=== PATIENT | male | born 1960 | race Caucasian/White ===

== ENCOUNTER → 2022-11-15 11:07 | Outpatient (BNVA) | payer MEDICAID, SELFPAY | PROVIDERS: PCP Family Medicine; Visit Provider Emergency Medicine | DX: R05.9 Cough, unspecified (principal); J01.00 Acute maxillary sinusitis, unspecified; Z20.822 Contact with and (suspected) exposure to COVID-19 | CPT/HCPCS: 87426 ==

== ENCOUNTER 2023-03-11 14:30 | Outpatient (CLI) | payer MEDICAID, SELFPAY ==
--- NOTE | 2023-03-11 14:37 | CT_ITS ---
WS: [id number] LDCT LUNG CANCER SCREENING TECHNIQUE: Noncontrast CT of the chest with coronal and sagittal reformatted images. CLINICAL INFORMATION: HX OF TOBACCO USE COMPARISON: None. DLP: 63.00 mGy.cm DIvol: Mean CTDIvol: 1.10 (mGy) All CT scans at [facility] use at least one of these dose optimization techniques: automat ed exposure control; mA and/or kV adjustment per patient size (includes targeted exams where dose is matched to clinical indication); or iterative reconstruction. FINDINGS: Moderate chronic emphysematous changes. LEFT lower lobe nodule measuring 9 mm. Few addition al tiny surrounding satellite nodules. Subsegmental atelectasis LEFT lower lobe. Subsegmental atelect asis in the lingula. Normal caliber thoracic aorta. Aortic calcification. No mediastinal or hilar lymphadenopathy. No axil roger lymphadenopathy. Coronary calcification. Adrenal glands are normal. Normal GE junction. Mild tho racic curve. A few Schmorl's nodes in the midthoracic spine. IMPRESSION: LEFT lower lobe nodule measuring 9 mm with a few tiny surrounding satellite nodules. Meliton mmend further evaluation with PET/CT. No prior comparisons. CT/CT lung screening [id number] LUNG-RADS: 4B-Suspicious FOLLOW UP: PET/CT recommended
== END 2023-03-11 14:31 | disposition home or self-care (01) ==
LOC: RAD 14:31
PROVIDERS: PCP Family Medicine; Visit Provider Family Medicine
DX: Z12.2 Encounter for screening for malignant neoplasm of respiratory organs (principal); Z87.891 Personal history of nicotine dependence; R91.8 Other nonspecific abnormal finding of lung field
CPT/HCPCS: 71271

== ENCOUNTER 2023-04-04 17:40 | Emergency (ER) | payer OTHER, MEDICAID, SELFPAY ==
[2023-04-04 18:41] VITALS: BP 152/91; PULSE 90; RESP 15; TEMP 36.2; O2SAT 95; BMI 21.2
--- NOTE | 2023-04-04 20:11 | XRR_ITS ---
PROCEDURE INFORMATION: Exam: XR Right Hand Exam date and time: 04/04/2023 8:35 PM Age: 62 years old Clinical indication: Injury or trauma; Other: Dog bite; Finger; Thumb; Right TECHNIQUE: Imaging protocol: Radiologic exam of the right hand. Views: 3 or more views. COMPARISON: No relevant prior studies available. FINDINGS: Bones/joints: There are acute comminuted nondisplaced fractures involving the proximal aspect of the 1st proximal phalanx. There is abnormal alignment between the 1st metacarpal bone in the 1st proximal phalanx suggesting dislocation. Focal irregularity involving the distal end of the 1st metacarpal bone may also indicate avulsion fracture. Soft tissues: There is soft tissue injury involving the thumb. I see no foreign body. XR/XR hand RT min 3V* [id number] IMPRESSION: Fractures involving the 1st metacarpal and proximal phalanx with associated soft tissue injury
--- NOTE | 2023-04-04 20:23 | ED_ITS ---
HPI - Extremity Problem 2 General: Chief complaint: Extremity Problem,Nontraumatic Stated complaint: Infected left hand wound Time Seen by Provider: 04/04/23 20:11 Source: patient Mode of arrival: ambulatory Limitations: no limitations History of Present Illness: 62-year-old male states he was bitten by dog on his right hand 3 weeks ago he states he had seen his PCP is placed on Augmentin states he had some improvement but over the last 4 to 5 days has had swelling redness and drainage from the wound he states that he has some pain with range of motion. Denies any fever denies any worsening improving factors. Associated symptoms: Deny chest pain, fever(s) or rash Review of Systems 2 Const: Denies: fever(s), chills, body aches or change in appetite ENMT: Denies: throat pain or dental pain Card: Denies: chest pain Resp: Denies: dyspnea GI: Denies: abdominal pain, nausea, vomiting or diarrhea Musc: Reports: extremity pain; Denies: neck pain or back pain Skin/Breast: Denies: rash Neuro: Denies: headache(s) Physical Exam 2 Const: COMMON NORMALS: patient oriented x3 HENMT: COMMON NORMALS: normocephalic and atraumatic HEAD & SCALP: n ormocephalic and atraumatic Neck/C-Spine: COMMON NORMALS: full ROM Chest: COMMONS NORMALS: normal inspection of the chest Resp: COMMON NORMALS: normal respiratory effort GI: COMMON NORMALS: Normal to inspection, nondistended, normoactive bowel sounds present, Soft to palpation, non-tender and no masses PALPATION: Yes Soft to palpation Extremity: NARRATIVE EXTREMITY EXAM: Skin erythema along with swelling to base of right thumb with some purulent drainage from wound Neuro: COMMON NORMALS: patient oriented x3, moves all extremities and no focal motor deficits Psych: COMMON NORMALS: mental status grossly normal, Normal thought process present and cooperative THOUGHT PROCESS: Normal thought process present Skin: COMMON NORMALS: no rashes or lesions noted and no wounds GENERAL SKIN EXAM: no rashes or lesions noted Course 2 Vital Signs: Vital signs: Vital Signs Temperature 97.2 F L 04/04/23 18:41 Pulse Rate 81 04/04/23 22:20 Respiratory Rate 15 04/04/23 18:41 Blood Pressure 175/92 04/04/23 22:20 Pulse Oximetry 97 04/04/23 22:20 Oxygen Delivery Me thod Room Air 04/04/23 22:20 MDM - Extremity (Nontraumatic) Medical Decision Making Patient presents with right thumb fracture along with cellulitis I strongly recommended patient to be transferred to [facility] for his fracture along with cellulitis and swelling to his thumb. Patient states that he is not going there by ambulance he states that he is not able to go there tonight and refused. Informed him that he appears to have a serious infection to his thumb he could even lose his thumb he understands this. Did placement thumb spica splint given vancomycin here we will write him for Augmentin did get him name and number for hand specialist at [place] to follow-up with if he changes his mind he is to return. Medical Records I reviewed the patient's medical records. Lab Data I reviewed the patient's lab results. 04/04/23 21:30 04/04/23 21:30 Radiology Impressions Hand X-Ray 04/04/23 20:11 IMPRESSION: Fractures involving the 1st metacarpal and proximal phalanx with associated soft tissue injury Laboratory Results WBC 11.20 10^3/uL (3.29-11.43) 04/04/23 21:30 RBC 4.98 10^6/uL (3.85-5.65) 04/04/23 21:30 Hgb 15.20 g/dL (11.27-16.99) 04/04/23 21:30 Hct 46.3 % (37-53) 04/04/23 21:30 MCV 93.0 fl (82-101) 04/04/23 21:30 MCH 30.5 pg (27-33) 04/04/23 21:30 MCHC 32.8 g/dL (30-55) 04/04/23 21:30 RDW 11.9 % (12.1-15.1) L 04/04/23 21:30 Plt Count 253 10^3/cmm (157-399) 04/04/23 21:30 MPV 9.6 fL (7.4-10.4) 04/04/23 21:30 Neut % (Auto) 65.0 % 04/04/23 21:30 Lymph % (Auto) 21.9 % 04/04/23 21:30 Davison % (Auto) 10.7 % 04/04/23 21:30 Eos % (Auto) 1.4 % 04/04/23 21:30 Baso % (Auto) 0.6 % 04/04/23 21:30 Neut # (Auto) 7.28 10^3/uL (1.8-7.7) 04/04/23 21:30 Lymph # (Auto) 2.5 10^3/uL (0.8-4.8) 04/04/23 21:30 Davison # (Auto) 1.2 10^3/uL (0.2-0.9) H 04/04/23 21:30 Eos # (Auto) 0.2 10^3/uL (0.0-0.8) 04/04/23 21:30 Baso # (Auto) 0.1 10^3/uL (0.0-0.1) 04/04/23 21:30 Nucleated RBC % (auto) 0 % 04/04/23 21:30 Nucleated RBCs # 0.0 /100WBC 04/04/23 21:30 ESR 19 mm/hr (0-10) H 04/04/23 21:30 Sodium 137 mmol/L (136-145) 04/04/23 21:30 Potassium 4.4 mmol/L (3.5-5.1) 04/04/23 21: Chloride 100 mmol/L (98-107) 04/04/23 21: Carbon Dioxide 25 mmol/L (22-29) 04/04/23 21:30 Anion Gap 16.4 (5-19) 04/04/23 21:30 BUN 11 mg/dL (8-23) 04/04/23 21:30 Creatinine 0.7 mg/dL (0.7-1.2) 04/04/23 21:30 GFR Calculation 113.9 mL/min (90-130) 04/04/23 21:30 Glucose 110 mg/dL (65-115) 04/04/23 21: Calculated Osmolality 284 mOsm/kg (285-295) L 04/04/23 21:30 Calcium 9.1 mg/dL (8.5-10.5) 04/04/23 21:30 C-Reactive Protein 9.6 mg/L (0.0-4.9) H 02/05/24 21:30 All radiology interpretation(s) finalized by discharge Discharge Plan Discharge Patient Disposition: Left Against Medical Advice Clinical Impression: Closed fracture of right thumb Cellulitis Qualifiers: Site of cellulitis: extremity Site of cellulitis of extremity: upper extremity Laterality: right Qualified Code(s): L03.113 - Cellulitis of right upper limb Condition: Stable Prescriptions: New Augmentin 500-125 mg tablet 1 tab PO BID Qty: 14 0RF No Action mupirocin 2 % ointment 1 applic topical BID Qty: 15 0RF fluticasone propionate [Flonase Allergy Relief] 50 mcg/actuation spray,suspension 2 spray intranasal DAILY Qty: 16 0RF Rx Instructions: administer into each nostril cetirizine [Zyrtec] 10 mg tablet 10 mg PO DAILY Qty: 30 0RF Discharge Orders: Discharge ED (Routine); Ordered 04/04/23 Ordered By: Anastasia Dickens Referrals: sybil amos [Other] - 4-7 days Ambrocio Sommers MD [Primary Care Provider] - Discharge Diet: Advance as tolerated Discharge Activity: Resume usual activity Patient Instructions: Cellulitis (ED), Thumb Fracture (ED) Coding Level of Care Code ED Fitness Floor Attendant for Tomas Danielson
[2023-04-04] MEDS: vancomycin 1,000 MG in sodium chloride 0.9% 250 ML 250 MG IV (21:32)
[2023-04-04 21:39] LABS: Basophils # 0.1 10^3/uL (0.0-0.1); Basophils % 0.6 %; Eosinophils # 0.2 10^3/uL (0.0-0.8); Eosinophils % 1.4 %; Hematocrit 46.3 % (37-53); Lymphocytes # 2.5 10^3/uL (0.8-4.8); Lymphocytes % 21.9 %; Mean Corpuscular HGB Conc 32.8 g/dL (30-55); Mean Corpuscular Hemoglobin 30.5 pg (27-33); Mean Platelet Volume 9.6 fL (7.4-10.4); Monocytes # 1.2 10^3/uL (0.2-0.9); Monocytes % 10.7 %; Neutrophils # 7.28 10^3/uL (1.8-7.7); Nucleated Red Blood Cells % 0 %; Platelet Count 253 10^3/cmm (157-399); Red Blood Count 4.98 10^6/uL (3.85-5.65); Red Cell Distribution Width 11.9 % (12.1-15.1)
[2023-04-04 21:52] LABS: Erythrocyte Sedimentation Rate 19 mm/hr (0-10)
[2023-04-04 21:58] LABS: Anion Gap 16.4 (5-19); Blood Urea Nitrogen 11 mg/dL (8-23); C Reactive Protein 9.6 mg/L (0.0-4.9); Calcium 9.1 mg/dL (8.5-10.5); Carbon Dioxide 25 mmol/L (22-29); Chloride 100 mmol/L (98-107); Glomerular Filtration Rate 113.9 mL/min (90-130); Glucose 110 mg/dL (65-115); Osmolality Calculated 284 mOsm/kg (285-295); Potassium 4.4 mmol/L (3.5-5.1); Sodium 137 mmol/L (136-145)
[2023-04-04 22:20] VITALS: BP 175/92; PULSE 81; O2SAT 97
[2023-04-04 23:03] VITALS: BP 162/89; PULSE 80; O2SAT 92
== END 2023-04-04 23:06 | disposition left against medical advice (07) ==
PROVIDERS: Emergency Provider Emergency Medicine; PCP Family Medicine
DX: L03.113 Cellulitis of right upper limb (principal); S62.511A Displaced fracture of proximal phalanx of right thumb, initial encounter for closed fracture; Z53.29 Procedure and treatment not carried out because of patient's decision for other reasons; W54.0XXA Bitten by dog, initial encounter
CPT/HCPCS: 29125; 73130; 80048; 85025; 85651; 86140; 87040; 87150; 87186; 87205; 96374; 99284; J3370; J7050

== ENCOUNTER 2023-07-12 12:33 | Outpatient (CLI) | payer OTHER, MEDICAID, SELFPAY ==
--- NOTE | 2023-07-12 12:40 | PETR_ITS ---
PROCEDURE INFORMATION: Exam: PET/CT Skull Base to Mid-thigh Exam date and time: 07/12/2023 1:41 PM Age: 63 years old Clinical indication: Abnormal findings; Left lower lobe nodule measuring 9 mm with a few tiny surrounding satellite nodules. ; Additional info: Solitary pulmonary nodule LABS AND CLINICAL REPORTS: Glucose: 85 mg/dl Treatment strategy for malignancy (PET staging): Initial Staging (PI) TECHNIQUE: Imaging protocol: Following at least four-hour fasting and following the injection of radiopharmaceutical, low dose CT images were obtained. Then, PET images were obtained. Attenuation corrected images were constructed using the CT scan. Fused images of PET and CT were reviewed. The standardized uptake values (SUV) reported below are maximum values within a region of interest, expressed in gm/ml. Exam includes orbital meatal line to mid-thigh. Radiopharmaceutical: 13.85 mCi F-18 FDG (Fluorodeoxyglucose), IV. Time of imaging post radiopharmaceutical administration: 1 hour Injection site: right hand COMPARISON: No relevant prior studies available. FINDINGS: Brain: Visualized brain has normal physiologic uptake. Pharynx: No abnormal uptake. Larynx: No abnormal uptake. Lungs, pleura and trachea: Mild paraseptal emphysema. A couple tiny subpleural nodules in the left lower lobe measuring 3-4 mm have no increased FDG uptake. The previously noted left lower lobe nodule is less conspicuous. There may be some mild scarring in this region. Heart: Normal physiologic uptake. Mediastinal space: No abnormal uptake. Liver: No abnormal uptake. Gallbladder and bile ducts: No abnormal uptake. Pancreas: No abnormal uptake. Spleen: No abnormal uptake. Adrenal glands: No abnormal uptake. Kidneys and ureters: Small nonobstructing right renal calculi. Stomach and bowel: No abnormal uptake. Vasculature: No abnormal uptake. Lymph nodes: No abnormal uptake. No lymphadenopathy in the head, neck, chest, abdomen, pelvis, and extremities. Bones/joints: No abnormal uptake in the visualized axial and appendicular skeleton. Soft tissues: Small fat containing left inguinal hernia. PET/PET skulltothi INITIAL [id number] IMPRESSION: No FDG avid pulmonary nodules are seen.
== END 2023-07-12 12:34 | disposition home or self-care (01) ==
PROVIDERS: PCP Family Medicine; Visit Provider Family Medicine
DX: R91.1 Solitary pulmonary nodule (principal)
CPT/HCPCS: 78815; A9552